=== PATIENT | female | born 1975 | race Caucasian/White ===

== ENCOUNTER 2020-11-02 13:02 | Emergency (ER) | payer BC ==
--- NOTE | 2020-11-03 07:23 | ER ---
HISTORY OF PRESENT ILLNESS: A 45-year-old lady here with complaints of mild shortness of breath and dysphagia that started just over the last couple of hours. The patient states that she got her second COVID vaccination 2 days ago and has been feeling fine until just this morning. She has a job where she works from home and she found that when she was busy talking, she was a little short of breath. She is not short of breath when she is just resting. Walking has also been a little uncomfortable for her. The patient states that she has not had any history of asthma, bronchitis, or COPD, and she has never used any inhalers or nebulizer treatments. OBJECTIVE: GENERAL APPEARANCE: The patient is awake and alert. No obvious distress. VITAL SIGNS: Reviewed. Pulse is 92, blood pressure 158/98, respirations 18, O2 sats are 98%. LUNGS: Reveal just minimal reduction of air exchange throughout the lung tan. I do not hear any rales, wheezes, or rhonchi. CARDIAC: Heart sounds are distinct. S1, S2 present. No murmurs. SKIN: Warm and dry. LABORATORY AND X-RAY DATA: Chest x-ray is obtained and is unremarkable. DIAGNOSIS: Mild shortness of breath symptoms, possibly due to COVID vaccination. TREATMENT PLAN: I advised the patient to take it easy today and tomorrow, I will not give her any medications at this time. Hopefully, this will quickly run its course and resolve. Blood pressure was rechecked without really any change. The patient was walked around the ER with an O2 saturation monitor on and her sats never vary and they were actually 99%. The patient is agreeable with this treatment plan and followup is p.r.n. for symptoms or get worse in any way. CRS/MODL /[id number]
--- NOTE | 2020-11-03 08:45 | CR ---
DATE OF SERVICE: 11/02/20 CLINICAL DATA: SOB PA CHEST: No priors. The heart size is normal. The lungs are clear. No pneumothorax. No pleural effusions. No evidence of acute intrathoracic disease. [id number] [facility]
== END 2020-11-02 13:52 | disposition home or self-care (01) ==
LOC: LB.ED 13:02
DX: R06.02 Shortness of breath (principal)
CPT/HCPCS: 71045; 99282; 99284-25

== ENCOUNTER 2022-08-27 12:01 | Emergency (ER) | payer BC ==
[2022-08-27 13:40] LABS: HEMOGLOBIN A1C 6.5 % (< 5.7)
[2022-08-27 13:41] LABS: ESTIMATED GFR 89 mL/min (>60)
[2022-08-27 14:47] LABS: CORONAVIRUS COVID-19 NAA NEGATIVE (NEGATIVE)
== END 2022-08-27 15:04 | disposition home or self-care (01) ==
LOC: LB.ED 12:01
DX: B34.9 Viral infection, unspecified (principal); E78.00 Pure hypercholesterolemia, unspecified; I10 Essential (primary) hypertension; E11.9 Type 2 diabetes mellitus without complications; Z20.822 Contact with and (suspected) exposure to COVID-19
CPT/HCPCS: 0241U; 36415; 80053; 81003; 83036; 85027; 99284

== ENCOUNTER 2023-12-07 17:57 | Emergency (ER) | payer BC, OTHER ==
[2023-12-07] MEDS: Cyclobenzaprine 10 MG Tab PO ONE (18:59)
[2023-12-07] MEDS: Acetaminophen 500 MG Tab PO ONE (18:59)
[2023-12-07] MEDS: Sodium Chloride 0.9% 50 ML SDV FLUSH ONE (19:21)
[2023-12-07] MEDS: Iopamidol 612 MG/ML 100 ML Bottle IV SCH (19:21)
[2023-12-07 20:54] LABS: ALBUMIN 3.3 g/dL (3.4-5.0); ANION GAP 9.7 mmol/L (5.0-15.0); BILIRUBIN TOTAL 0.6 mg/dL (0.0-1.0); BUN/CREATININE RATIO 15.5 (6-25); CALCIUM 9.1 mg/dL (8.5-10.1); CARBON DIOXIDE,CO2 30.2 mmol/L (21.0-32.0); CREATININE 0.84 mg/dL (0.55-1.02); EST CRCL DRUG DOSING (CG) 73.7 mL/min; POTASSIUM,K 3.9 mmol/L (3.5-5.1); PROTEIN TOTAL,TP 7.2 g/dL (6.4-8.2)
[2023-12-07 21:00] LABS: BASOPHILS ABSOLUTE AUTO 0.01 K/uL (0.02-0.10); BASOPHILS PERCENT AUTO 0.1 % (0.0-0.5); EOSINOPHILS ABSOLUTE AUTO 0.12 K/uL (0.04-0.40); EOSINOPHILS PERCENT AUTO 1.5 % (1.0-5.0); HEMATOCRIT 39.3 % (37.0-47.0); HEMOGLOBIN 13.1 g/dL (11.5-16.5); LYMPHOCYTES ABSOLUTE AUTO 3.34 K/uL (1.50-4.00); LYMPHOCYTES PERCENT AUTO 42.5 % (20.0-40.0); MEAN CORPUSCULAR HEMOGLOBIN 27.8 pg (27.0-32.0); MEAN CORPUSCULAR HGB CONC 33.3 g/dL (31.0-35.0); MEAN CORPUSCULAR VOLUME 83 fL (76-96); MEAN PLATELET VOLUME 9.8 fL (6.0-10.0); MONOCYTES ABSOLUTE AUTO 0.56 K/uL (0.20-0.80); MONOCYTES PERCENT AUTO 7.1 % (3.0-10.0); NEUTROPHILS ABSOLUTE AUTO 3.83 K/uL (2.00-7.50); NEUTROPHILS PERCENT AUTO 48.8 % (45.0-70.0); PLATELET COUNT,PLT 281 K/uL (150-500); RED BLOOD CELL COUNT 4.72 M/uL (3.80-5.80); RED CELL DISTRIBUTION WIDTH 14.3 % (11.0-16.0); WHITE BLOOD CELL COUNT,WBC 7.9 K/uL (4.0-11.0)
[2023-12-07] MEDS ORDERED: Cyclobenzaprine 10 MG Tab ONE (21:00)
[2023-12-07 21:02] LABS: A/G RATIO 0.9 (0.8-2.0)
[2023-12-07 21:37] LABS: APPEARANCE,URINE CLEAR (CLEAR); BILIRUBIN,URINE NEGATIVE (NEGATIVE); COLOR,URINE YELLOW; GLUCOSE,URINE NEGATIVE (NEGATIVE); KETONES,URINE NEGATIVE (NEGATIVE); LEUKOCYTE ESTERASE,URINE NEGATIVE (NEGATIVE); NITRITE,URINE NEGATIVE (NEGATIVE); OCCULT BLOOD,URINE NEGATIVE (NEGATIVE); PROTEIN,URINE NEGATIVE (NEGATIVE); UROBILINOGEN,URINE 0.2 E.U./dL (0.2-1.0)
== END 2023-12-07 21:37 | disposition home or self-care (01) ==
LOC: LB.ED 17:57
DX: M54.50 Low back pain, unspecified (principal); R10.31 Right lower quadrant pain; I10 Essential (primary) hypertension; E11.9 Type 2 diabetes mellitus without complications; Z79.899 Other long term (current) drug therapy
CPT/HCPCS: 36415; 74178; 80053; 81003; 83605; 83690; 85025; 99284; A9270; J3490; Q9967; 99283

== ENCOUNTER 2024-02-07 10:38 | Emergency (ER) | payer SELFPAY ==
[2024-02-07 11:46] LABS: INFLUENZA A NAA NEGATIVE (NEGATIVE); INFLUENZA B NAA NEGATIVE (NEGATIVE); RESPIRATORY SYNCYTIAL VIR NAA NEGATIVE (NEGATIVE)
[2024-02-07 11:52] LABS: CORONAVIRUS COVID-19 NAA POSITIVE (NEGATIVE)
== END 2024-02-07 12:10 | disposition home or self-care (01) ==
LOC: LB.ED 10:38
DX: U07.1 COVID-19 (principal)
CPT/HCPCS: 0241U; 87651; 99283